=== PATIENT | female | born 1965 | race Caucasian/White ===

== ENCOUNTER 2017-03-14 06:56 | Day surgery (SDC) | payer BC ==
[~2017-03-14] VITALS: Ht 162.6 cm; Wt 64.4 kg
[~2017-03-14 06:56] MED LIST: ACYCLOVIR400 MG PO; FIORICET,ESG1 TABLET PO; JOLESSA1 EACH PO; TRAMADOL HCL50 MG PO
[2017-03-14 08:02] VITALS: BP 135/78
[2017-03-14] MEDS ORDERED: NORCO 5/3251 TABLET PO (09:52)
[2017-03-14 11:40] VITALS: BP 104/54
[2017-03-14 12:40] VITALS: BP 105/62
[2017-03-14 14:40] VITALS: BP 128/82
== END 2017-03-14 14:55 | disposition home or self-care (01) ==
LOC: SDC 06:56
PROC: 0FT44ZZ Resection of Gallbladder, Percutaneous Endoscopic Approach (ICD-10-PCS; principal; 2017-03-14)
DX: K80.10 Calculus of gallbladder with chronic cholecystitis without obstruction (principal); K66.0 Peritoneal adhesions (postprocedural) (postinfection); K59.00 Constipation, unspecified; Z87.891 Personal history of nicotine dependence; Z86.718 Personal history of other venous thrombosis and embolism
CPT/HCPCS: 88304; J0131; J1100; J1170; J1885; J2250; J2405; J2710; J3010; Q0175